=== PATIENT | male | born 1950 | race Caucasian/White ===

== ENCOUNTER → 2017-12-11 09:45 | Outpatient (CLI) | payer OTHER, SELFPAY ==
[2017-12-11 11:38] LABS: PSA,Total- Diagnostic 1.21 ng/mL (0.0-4.0)
== END ==
PROVIDERS: Family Provider Family Medicine; PCP Family Medicine; Visit Provider Urology
DX: C61 Malignant neoplasm of prostate (principal)
CPT/HCPCS: 36415; 84153

== ENCOUNTER 2024-04-25 12:48 | Outpatient (RCR) | payer SELFPAY ==
[2024-04-25 13:09] VITALS: BP 145/107; PULSE 89; RESP 18; BMI 30.4
--- NOTE | 2024-04-25 13:41 | PCM.WC.HP ---
History of Present Illness Date of Service: 04/25/24 Chief Complaint: R lateral ankle wound History of Wound: Mr. Jimbo Gray is a 73 y/o male who presents today for evaluation and management of a R lateral ankle wound as referred from Dr. Griffin's office with [facility]. He is accompanied to his appointment today by his . He reports that in February he had a straight pin in his shoe which scratched/punctured his ankle. Subsequently, he developed a significant abscess. He was evaluated for this at [facility], he was admitted for IV antibiotics, and Dr. Griffin performed I&D on 03/21/24. He has been following with Dr. Griffin to this point and has been applying Silvadene and dry dressing which they have been changing daily. His reports that there is typically mild drainage, but more moderate on days he is up on his feet more. He notes some increased swelling at the ankle on those days as well. He has completed outpatient oral antibiotic regimen, has not had any recurrent signs/symptoms of infection. He reports no significant past medical history including denying diabetes, known PAD or history of VTE. He does not smoke. He reports he has never had any wounds like this before. [facility] Medical History Stomach ulcer Home Medications ?Medication ?Instructions ?Recorded ?Last Taken ?Type pantoprazole 40 mg tablet,delayed 40 mg PO DAILY #30 tabs 12/24/20 Unknown Rx release (Protonix) Allergy/AdvReac Type Severity Reaction Status Date / Time No Known Allergies Allergy Verified 04/25/24 13:03 Surgical History H/O hernia repair Social History Smoking Status: Never smoker alcohol intake: never Vital Signs Vital Signs Vital Signs: 04/25/24 13:09 Pulse Rate 89 Respiratory Rate 18 Blood Pressure 145/107 H Blood Pressure Mean 119 Blood Pressure Source Monitor Blood Pressure Position Semi-Fowlers Blood Pressure Location Left Arm Oxygen Delivery Method Room Air Weight Weight: 200 lb Body Mass Index (BMI) 30.4 Physical Exam Const alert, oriented x3 and no apparent distress General Appearance: cooperative and comfortable HEENT normocephalic, hearing grossly normal bilaterally, external ears normal and external nose normal Eyes General Eye: normal appearance of both eyes Neck General: normal visual inspection and trachea midline Resp normal respiratory effort, normal air movement, no retractions and no use of accessory muscles Effort and Inspection: able to speak in complete sentences Cardio regular rate and regular rhythm Extremity Extremity Narrative: Trace RLE edema and hemosiderin staining Palpable pedal pulse Skin Wounds: wounds noted Wound Narrative: Irregularly shaped wound to the lateral R ankle into the subcutaneous layer with granular base but significant slough. No surrounding erythema, excess warmth, induration/fluctuance, foul odor. Serous drainage. Neuro oriented x3, CN's II-XII intact bilaterally, moves all extremities and no focal motor deficits Speech: speech normal Psych mental status grossly normal and activity/motor behavior normal Appearance: grossly normal Attitude: calm and engaged Activity / Motor Behavior: appropriate eye contact Judgement: judgement good Debridement Note Debridement Note Wound debrided: R lateral ankle Laterality: Right Type of Debridement: Excisional debridement Anesthesia Used: 4% Lidocaine Solution Depth: Down to and including healthy tissue and in the subcutaneous layer Percentage of wound debrided: 100 Instrument Used: 5mm curette Tissue Removed: slough Severity: Fat Layer Exposed Amount of bleeding with debridement: Mild Bleeding Controlled with: Pressure Post-Debridement Measurements and Additional Note: Post-Debridement Measurements/Treatment - Nurse 1 - General Ulcer Assessment Start: 04/25/24 13:02 Freq: Status: Active Protocol: [email or web address].[email or web address] Activity Type Activity Date Activity User E-sign Co-sign Detail Recorded Client Recorded Date Recorded By Document 04/25/24 13:09 [id number] 04/25/24 13:16 04/25/24 13:09 - Today's Visit Information Type of service Initial Visit Arrival Mode Ambulatory Accompanied by Patient Identification Verified (Name & Yes ) Height and Weight Height 5 ft 8 in Weight 200 lb Weight in Pounds 200.0 lbs Weight Measurement Method Estimated by Patient Body Mass Index (BMI) 30.4 BMI Classification Obese BSA - Prince 2.04 Vital Signs Pulse Rate (60-100) 89 Pulse Location Monitor Respiratory Rate (12-18) 18 Respiratory rate source Observation Oxygen Delivery Method Room Air Blood Pressure (90/60-120/80) 145/107 H Blood Pressure Mean 119 Source Monitor Position Semi-Fowlers Blood Pressure Location Left Arm History Since Last Visit- (Skip if this is Patient's initial visit) Left Footwear Regular Shoe Right Footwear Regular Shoe Pain Scale: 0-10 Numeric Is Patient Pain Free? Yes Lower Extremity Assessment/ Foot Assessment/ Toe Nail Assessment Right -Posterior Tibial Doppler Multiphasic -Dorsalis Pedis Palpable Yes -Dorsalis Pedis Doppler Multiphasic -Extremity Color Red -Hair Growth on Legs Yes -Hair Growth on Toes Yes -Temperature of Extremity Warm -Capillary Refill Less than 3 Seconds -Thick No -Discolored No -Deformed No -Improper Length & Hygeine No Communication Assessment Preferred language Thai Primer Powder Blender Wet Required No Able to Read Yes Able to Write Yes Communication Tools None Caregiver Communication Skills No Impairment Impairment Right Hearing Abillity Normal Left Hearing Abillity Normal Visual Assistive Devices None Teaching Assessment Preferences Verbal,Written, Demonstration Barriers to Learning None Readiness To Learn Excellent Willingness to Engage in Self Management High Activies Readiness to Engage in Self Management High Activities Anxiety Level Calm Cooperation Cooperative Perception Coherent Interest in Health Problem Asks Questions Education Importance Acknowledges Need Does Patient Smoke tobacco or other Yes substances Smoking Status Never smoker Is Patient Diabetic No Functional Assessment Recent Decline in Ability to Perform Denies Any Declines Culture/Sabianism/Associate Cultural/Sabianism Needs that may affect No Treatment Plan Would you allow our hospital boating safety officer to No meet you for the purpose of spiritual/ emotional support? Associate to contact place of sabianist No WC - Nurse 1 - General Ulcer Measurement Start: 04/25/24 13:02 Freq: Status: Active Protocol: Activity Type Activity Date Activity User E-sign Co-sign Detail Recorded Client Recorded Date Recorded By Document 04/25/24 13:09 [id number] 04/25/24 13:16 04/25/24 13:09 Wound Center Nurse 1 #1 RT LAT ANKLE -Current Size (cm) - Length 2.4 -Current Size (cm) - Width 3.8 -Current Size (cm) - Depth 0.1 -Total Square Cm 9.12 -Date of Last Picture (Recall this 04/25/24 field) -Exudate Amt Small -Exudate Type Serosanguineous -Wound Margin Distinct, Outline Attached -Granulation Amt Medium (34-66%) -Granulation Quality [place] -Necrosis Amt Medium (34-66%) -Necrotic Tissue Type Adherent Slough -Texture (Mendy-wound Skin Appearance) Assessed -Moisture (Mendy-wound Skin Appearance) Assessed -Color (Mendy-wound Skin Appearance) Assessed, Hemosiderin Staining -Temperature (Mendy-wound Skin No Abnormality Appearance) (Pt Warm) -Tenderness on Palpation (Mendy-wound No Skin Appearance) -Ulcer Cleansing Rinsed/ Irrigated with Saline -Foul Odor after Cleansing No -Anesthetic Used 5% Lidocaine Gel Right Calf (cm) 37 Right Ankle (cm) 24.5 WC - Nurse 2 - General Ulcer CM Notes Start: 04/25/24 13:02 Freq: Status: Active Protocol: Activity Type Activity Date Activity User E-sign Co-sign Detail Recorded Client Recorded Date Recorded By Document 04/25/24 13:23 GM [id number] 04/25/24 13:33 GM 04/25/24 13:23 Wound Center Nurse 2 #1 RT LAT ANKLE -Time 13:23 -Correct Patient Yes -Correct Side, Site, Position Yes -Correct Procedure Yes -Procedure Performed Yes -Type of Procedure Debridement -Clinical Debridement Subcutaneous -Tissue Removed Subcutaneous -Post Debridement (cm) - Length 2.7 -Post Debridement (cm) - Width 3.8 -Post Debridement (cm) - Depth 0.4 -Total Square (Post) (cm) 10.26 -Area of Debridement (cm) - Length 2.7 -Area of Debridement (cm) - Width 3.8 -Total Square (Area) (cm) 10.26 -Tunneling No -Undermining/Tunneling No -Circular Undermining No -Wound/Ulcer Outcome Not Healed -Ulcer Cleansing Rinsed/ Irrigated with Saline -Foul Odor after Cleansing No -Bioengineered Tissue No -Bleeding Controlled with Pressure -Treatment Response Procedure Tolerated Well -Debridement - Subq, 1st 20sq cm Yes Pain Scale: 0-10 Numeric Is Patient Pain Free? Yes WC - Nurse 3 - General Ulcer D/C NN Start: 04/25/24 13:02 Freq: Status: Active Protocol: Activity Type Activity Date Activity User E-sign Co-sign Detail Recorded Client Recorded Date Recorded By Document 04/25/24 13:39 KW [id number] 04/25/24 13:39 KW 04/25/24 13:39 Wound Care Center Nurse 3 #1 RT LAT ANKLE -Ulcer Cleansing Rinsed/ Irrigated with Saline -Primary Dressing Applied Aquacel AG 4x4, Mepilex Border -Aquacel AG 4x4 1 -Mepilex Border 1 Right -Tubular Bandage Single Layer -Size of Tubigrip Used Size E -Size E ($) 1 Pain Scale: 0-10 Numeric Is Patient Pain Free? Yes Charges/Coding Visit Charges Office Visits / Consults: [id number] OV L3 New 30min Procedures Integumentary 111xxx-113xx: 83017 Jessei subq tissue 20 sq cm/< Assessment/Plan Assessment/Plan (1) Chronic ulcer of ankle with fat layer exposed: CODE(S): L97.302 - Non-pressure chronic ulcer of unspecified ankle with fat layer exposed PLAN: Nonpressure chronic ulcer of the right lateral ankle with fat layer exposed PLAN: Plan Wound was debrided today as noted above, patient tolerated this well. For wound care, will apply Aquacel silver to the wound bed followed by either Mepilex border dressing or dry gauze dressing. Change at least once daily, more often as needed if the dressing becomes soaked or soiled. With dressing changes, wash the area with antibacterial soap and water and pat gently to dry. Will apply single layer medium strength tubigrip to manage edema. No signs/symptoms of recurrent infection on exam today. He is instructed to monitor for symptoms and notify us if they arise. Going forward, he will need to change to a Monday appointment to have more reliable transportation. He will return in 1 week to see another provider on Monday. Return or call sooner if needed.
--- NOTE | 2024-04-29 11:59 | WC ---
PHOTO 04/25/24 RIGHT LATERAL ANKLE
== END 2024-04-25 23:59 | disposition home or self-care (01) ==
LOC: WC 12:48
PROVIDERS: PCP Physician Assistant; Referring Provider Student in an Organized Health Care Education/Training Program; Visit Provider Physician Assistant
DX: L97.312 Non-pressure chronic ulcer of right ankle with fat layer exposed (principal); W26.8XXS Contact with other sharp object(s), not elsewhere classified, sequela; Z79.899 Other long term (current) drug therapy
CPT/HCPCS: 11042; 99203; G0463

== ENCOUNTER 2024-05-20 10:15 | Outpatient (RCR) | payer OTHER, SELFPAY ==
[2024-04-26 00:54] VITALS: BP 145/107; PULSE 89; RESP 18; BMI 30.4
[2024-05-06 10:02] VITALS: BP 151/103; PULSE 60; RESP 18; TEMP 36.5; BMI 30.4
--- NOTE | 2024-05-06 10:59 | PCM.WC.PN ---
History of Present Illness Date of Service: 05/06/24 Chief Complaint: R lateral ankle wound History of Wound: Mr. Jimbo Gray is a 73 y/o male who presents today for evaluation and management of a R lateral ankle wound as referred from Dr. Griffin's office with [facility]. He is accompanied to his appointment today by his . He reports that in February he had a straight pin in his shoe which scratched/punctured his ankle. Subsequently, he developed a significant abscess. He was evaluated for this at [facility], he was admitted for IV antibiotics, and Dr. Griffin performed I&D on 03/21/24. He has been following with Dr. Griffin to this point and has been applying Silvadene and dry dressing which they have been changing daily. His reports that there is typically mild drainage, but more moderate on days he is up on his feet more. He notes some increased swelling at the ankle on those days as well. He has completed outpatient oral antibiotic regimen, has not had any recurrent signs/symptoms of infection. He reports no significant past medical history including denying diabetes, known PAD or history of VTE. He does not smoke. He reports he has never had any wounds like this before. Progress of Wound: Patient was previously seen by PIERRE Tellez, but he was having issues with transportation on afternoons, so he was transferred to my clinic. His right ankle ulcer is a nice beefy pink color with granulation tissue present. It is measuring smaller than his previous visit. The patient states that he has noticed an improvement in the ulcer. His is helping him with his wound care. Objective Data Objective Data Vital Signs: Vital Signs Temp Pulse Resp BP O2 Del Method 97.7 F L 60 18 151/103 H Room Air 05/06/24 10:02 05/06/24 10:02 05/06/24 10:02 05/06/24 10:02 05/06/24 10:02 Oxygen Delivery Method Room Air Weight: 200 lb Body Mass Index (BMI) 30.4 Charges/Coding Procedures Integumentary 111xxx-113xx: [id number] Jessie subq tissue 20 sq cm/< Physical Exam Const alert and oriented x3 HEENT normocephalic Head and Scalp: atraumatic Lymph Lymphatic: no lymphedema noted Resp normal respiratory effort Effort and Inspection: able to speak in complete sentences Cardio regular rate Cardio Narrative: Right pedal and post tibial pulses palpable. +1 edema of right lower leg. Extremity normal capillary refill Neuro CN's II-XII intact bilaterally Psych affect normal Debridement Note Debridement Note Wound debrided: lateral ankle ulcer Laterality: Right Wound Grade/Stage: Stage III Type of Debridement: Excisional debridement Anesthesia Used: 5% Lidocaine Gel Depth: Down to and including healthy tissue and in the subcutaneous layer Percentage of wound debrided: 100 Instrument Used: 5mm curette Tissue Removed: Non viable tissue and slough Severity: Fat Layer Exposed Amount of bleeding with debridement: Mild Bleeding Controlled with: Pressure and Compression and gauze Patient tolerated procedure: Patient tolerated procedure well Post-Debridement Measurements and Additional Note: Post-Debridement Measurements/Treatment - Nurse 1 - General Ulcer Assessment Start: 05/06/24 10:02 Freq: Status: Active Protocol: [email or web address].[email or web address] Activity Type Activity Date Activity User E-sign Co-sign Detail Recorded Client Recorded Date Recorded By Document 05/06/24 10:02 EDGAR [id number] 05/06/24 10:08 EDGAR 05/06/24 10:02 - Today's Visit Information Type of service Follow-up Visit (Physician/COOKER MECHANIC ) Arrival Mode Ambulatory Patient Identification Verified (Name & Yes ) Height and Weight Body Mass Index (BMI) 30.4 BMI Classification Obese Vital Signs Temperature (97.8 F-99.1 F) 97.7 F L Temperature Source Temporal Pulse Rate (60-100) 60 Pulse Location Monitor Respiratory Rate (12-18) 18 Respiratory rate source Observation Oxygen Delivery Method Room Air Blood Pressure (90/60-120/80) 151/103 H Blood Pressure Mean (mm Hg) 119 Source Monitor Position Semi-Fowlers Blood Pressure Location Left Arm History Since Last Visit- (Skip if this is Patient's initial visit) Have you changed medications since your No last visit? Any new allergies or adverse reactions No Had a fall/change in ADL's that may No increase risk of falls Signs or symptoms of abuse and/or No neglect since last visit Have you been in the hospital since your No last visit? Has dressing in place as prescribed Yes Has compression in place as prescribed Yes Has offloadiing in place as prescribed N/A Experienced any changes in pain level or No management Left Footwear Regular Shoe Right Footwear Regular Shoe Pain Scale: 0-10 Numeric Is Patient Pain Free? Yes WC - Nurse 1 - General Ulcer Measurement Start: 05/06/24 10:02 Freq: Status: Active Protocol: Activity Type Activity Date Activity User E-sign Co-sign Detail Recorded Client Recorded Date Recorded By Document 05/06/24 10:02 [email or web address] [id number] 05/06/24 10:08 EDGAR 05/06/24 10:02 Wound Center Nurse 1 #1 RT LAT ANKLE -Current Size (cm) - Length 1.8 -Current Size (cm) - Width 2.8 -Current Size (cm) - Depth 0.1 -Total Square Cm 5.04 -Exudate Amt Small -Exudate Type Serosanguineous -Wound Margin Distinct, Outline Attached -Granulation Amt Large (67-100%) -Granulation Quality Hyper- granulation,Red -Texture (Mendy-wound Skin Appearance) Assessed -Moisture (Mendy-wound Skin Appearance) Assessed -Color (Mendy-wound Skin Appearance) Assessed -Temperature (Mendy-wound Skin No Abnormality Appearance) (Pt Warm) -Tenderness on Palpation (Mendy-wound No Skin Appearance) -Ulcer Cleansing Rinsed/ Irrigated with Saline -Foul Odor after Cleansing No -Anesthetic Used 5% Lidocaine Gel Right Calf (cm) 36.3 Right Ankle (cm) 24.2 WC - Nurse 2 - General Ulcer CM Notes Start: 05/06/24 10:02 Freq: Status: Active Protocol: Activity Type Activity Date Activity User E-sign Co-sign Detail Recorded Client Recorded Date Recorded By Document 05/06/24 10:51 MARYANNE [id number] 05/06/24 10:53 MARYANNE 05/06/24 10:51 Wound Center Nurse 2 #1 RT LAT ANKLE -Time 10:52 -Correct Patient Yes -Correct Side, Site, Position Yes -Correct Procedure Yes -Procedure Performed Yes -Type of Procedure Debridement -Clinical Debridement Subcutaneous -Tissue Removed Subcutaneous -Post Debridement (cm) - Length 1.8 -Post Debridement (cm) - Width 2.8 -Post Debridement (cm) - Depth 0.1 -Total Square (Post) (cm) 5.04 -Area of Debridement (cm) - Length 1.8 -Area of Debridement (cm) - Width 2.8 -Total Square (Area) (cm) 5.04 -Tunneling No -Undermining/Tunneling No -Circular Undermining No -Wound/Ulcer Outcome Not Healed -Ulcer Cleansing Rinsed/ Irrigated with Saline -Foul Odor after Cleansing No -Bioengineered Tissue No -Bleeding Controlled with Pressure -Treatment Response Procedure Tolerated Well -Offloading No -Debridement - Subq, 1st 20sq cm Yes Pain Scale: 0-10 Numeric Is Patient Pain Free? Yes Assessment/Plan Assessment/Plan (1) Chronic ulcer of ankle with fat layer exposed: CODE(S): L97.302 - Non-pressure chronic ulcer of unspecified ankle with fat layer exposed PLAN: Nonpressure chronic ulcer of the right lateral ankle with fat layer exposed PLAN: Plan Wound was debrided today as noted above, patient tolerated this well. For wound care, will apply Aquacel silver to the wound bed followed by dry gauze or Mepilex dressing. Change at least once daily, more often as needed if the dressing becomes soaked or soiled. With dressing changes, wash the area with antibacterial soap and water and pat gently to dry. Will apply single layer medium strength tubigrip to manage edema. No signs/symptoms of recurrent infection on exam today. He is instructed to monitor for symptoms and notify us if they arise. He will return in 2 weeks. Return or call sooner if needed.
[2024-05-20 10:02] VITALS: BP 149/86; PULSE 77; RESP 18; TEMP 36.2; BMI 30.4
--- NOTE | 2024-05-20 12:22 | PN.PCM_ITS ---
History of Present Illness Date of Service: 05/20/24 Chief Complaint: R lateral ankle wound History of Wound: Mr. Jimbo Gray is a 73 y/o male who presents today for evaluation and management of a R lateral ankle wound as referred from Dr. Griffin's office with [facility]. He is accompanied to his appointment today by his . He reports that in February he had a straight pin in his shoe which scratched/punctured his ankle. Subsequently, he developed a significant abscess. He was evaluated for this at [facility], he was admitted for IV antibiotics, and Dr. Griffin performed I&D on 03/21/24. He has been following with Dr. Griffin to this point and has been applying Silvadene and dry dressing which they have been changing daily. His reports that there is typically mild drainage, but more moderate on days he is up on his feet more. He notes some increased swelling at the ankle on those days as well. He has completed outpatient oral antibiotic regimen, has not had any recurrent signs/symptoms of infection. He reports no significant past medical history including denying diabetes, known PAD or history of VTE. He does not smoke. He reports he has never had any wounds like this before. Progress of Wound: His right ankle ulcer is a nice beefy pink color with granulation tissue present. It is measuring much smaller. His is helping him with his wound care. She is insisting on changing his dressing twice a day. Objective Data Objective Data Vital Signs: Vital Signs Temp Pulse Resp BP O2 Del Method 97.1 F L 77 18 149/86 H Room Air 05/20/24 10:02 05/20/24 10:02 05/20/24 10:02 05/20/24 10:02 05/20/24 10:02 Oxygen Delivery Method Room Air Weight: 200 lb Body Mass Index (BMI) 30.4 Charges/Coding Procedures Integumentary [id number]: [id number] Jessie subq tissue 20 sq cm/< Debridement Note Debridement Note Wound debrided: lateral ankle ulcer Laterality: Right Wound Grade/Stage: Stage III Type of Debridement: Excisional debridement Anesthesia Used: 5% Lidocaine Gel Depth: Down to and including healthy tissue and in the subcutaneous layer Percentage of wound debrided: 100 Instrument Used: 3mm curette Tissue Removed: Non viable tissue and slough Severity: Fat Layer Exposed Amount of bleeding with debridement: Mild Bleeding Controlled with: Pressure and Compression and gauze Patient tolerated procedure: Patient tolerated procedure well Post-Debridement Measurements and Additional Note: Post-Debridement Measurements/Treatment - Nurse 1 - General Ulcer Assessment Start: 05/06/24 10:02 Freq: Status: Active Protocol: VIET Activity Type Activity Date Activity User E-sign Co-sign Detail Recorded Client Recorded Date Recorded By Document 05/06/24 10:02 KW [id number] 05/06/24 10:08 KW Document 05/20/24 10:02 KW [id number] 05/20/24 10:07 KW 05/06/24 05/20/24 10:02 10:02 - Today's Visit Information Type of service Follow-up Visit Follow-up Visit (Physician/[employer]ACH [employer]OR [employer]KER (Physician/BLEACH [employer]QUOR MAKER ) ) Arrival Mode Ambulatory Ambulatory Patient Identification Verified (Name & Yes Yes ) Height and Weight Body Mass Index (BMI) 30.4 30.4 BMI Classification Obese Obese Vital Signs Temperature (97.8 F-99.1 F) 97.7 F L 97.1 F L Temperature Source Temporal Temporal Pulse Rate (60-100) 60 77 Pulse Location Monitor Monitor Respiratory Rate (12-18) 18 18 Respiratory rate source Observation Observation Oxygen Delivery Method Room Air Room Air Blood Pressure (90/60-120/80) 151/103 H 149/86 H Blood Pressure Mean (mm Hg) 119 107 Source Monitor Monitor Position Semi-Fowlers Sitting Blood Pressure Location Left Arm Left Arm History Since Last Visit- (Skip if this is Patient's initial visit) Have you changed medications since your No No last visit? Any new allergies or adverse reactions No No Had a fall/change in ADL's that may No No increase risk of falls Signs or symptoms of abuse and/or No No neglect since last visit Have you been in the hospital since your No No last visit? Has dressing in place as prescribed Yes Yes Has compression in place as prescribed Yes Yes Has offloadiing in place as prescribed N/A N/A Experienced any changes in pain level or No No management Left Footwear Regular Shoe Regular Shoe Right Footwear Regular Shoe Regular Shoe Pain Scale: 0-10 Numeric Is Patient Pain Free? Yes Yes - Nurse 1 - General Ulcer Measurement Start: 05/06/24 10:02 Freq: Status: Active Protocol: Activity Type Activity Date Activity User E-sign Co-sign Detail Recorded Client Recorded Date Recorded By Document 05/06/24 10:02 KW [id number] 05/06/24 10:08 KW Document 05/20/24 10:02 KW [id number] 05/20/24 10:07 KW 05/06/24 05/20/24 10:02 10:02 Wound Center Nurse 1 #1 RT LAT ANKLE -Current Size (cm) - Length 1.8 0.7 -Current Size (cm) - Width 2.8 1.5 -Current Size (cm) - Depth 0.1 0.1 -Total Square Cm 5.04 1.05 -Date of Last Picture (Recall this 05/20/24 field) -Exudate Amt Small Small -Exudate Type Serosanguineous Serosanguineous -Wound Margin Distinct, Distinct, Outline Outline Attached Attached -Granulation Amt Large (67-100%) Small (1-33%) -Granulation Quality Hyper- [place],Red granulation,Red -Necrosis Amt Large (67-100%) -Necrotic Tissue Type Adherent Slough -Texture (Mendy-wound Skin Appearance) Assessed Assessed -Moisture (Mendy-wound Skin Appearance) Assessed Maceration -Color (Mendy-wound Skin Appearance) Assessed Assessed, Ecchymosis -Temperature (Mendy-wound Skin No Abnormality No Abnormality Appearance) (Pt Warm) (Pt Warm) -Tenderness on Palpation (Mendy-wound No No Skin Appearance) -Ulcer Cleansing Rinsed/ Rinsed/ Irrigated with Irrigated with Saline Saline -Foul Odor after Cleansing No No -Anesthetic Used 5% Lidocaine 5% Lidocaine Gel Gel Right Calf (cm) 36.3 36.2 Right Ankle (cm) 24.2 23.3 WC - Nurse 2 - General Ulcer CM Notes Start: 05/06/24 10:02 Freq: Status: Active Protocol: Activity Type Activity Date Activity User E-sign Co-sign Detail Recorded Client Recorded Date Recorded By Document 05/06/24 10:51 JF [id number] 05/06/24 10:53 JF Document 05/20/24 10:20 JF [id number] 05/20/24 10:21 JF 05/06/24 05/20/24 10:51 10:20 Wound Center Nurse 2 #1 RT LAT ANKLE -Time 10:52 10:20 -Correct Patient Yes Yes -Correct Side, Site, Position Yes Yes -Correct Procedure Yes Yes -Procedure Performed Yes Yes -Type of Procedure Debridement Debridement -Clinical Debridement Subcutaneous Subcutaneous -Tissue Removed Subcutaneous Subcutaneous -Post Debridement (cm) - Length 1.8 0.9 -Post Debridement (cm) - Width 2.8 1.5 -Post Debridement (cm) - Depth 0.1 0.1 -Total Square (Post) (cm) 5.04 1.35 -Area of Debridement (cm) - Length 1.8 0.9 -Area of Debridement (cm) - Width 2.8 1.5 -Total Square (Area) (cm) 5.04 1.35 -Tunneling No No -Undermining/Tunneling No No -Circular Undermining No No -Wound/Ulcer Outcome Not Healed Not Healed -Ulcer Cleansing Rinsed/ Rinsed/ Irrigated with Irrigated with Saline Saline -Foul Odor after Cleansing No No -Bioengineered Tissue No No -Bleeding Controlled with Pressure Pressure -Treatment Response Procedure Procedure Tolerated Well Tolerated Well -Offloading No No -Debridement - Subq, 1st 20sq cm Yes Yes Pain Scale: 0-10 Numeric Is Patient Pain Free? Yes Yes - Nurse 3 - General Ulcer D/C NN Start: 05/06/24 10:02 Freq: Status: Active Protocol: Activity Type Activity Date Activity User E-sign Co-sign Detail Recorded Client Recorded Date Recorded By Document 05/06/24 10:59 KW [id number] 05/06/24 11:00 KW Document 05/20/24 10:40 DL [id number] 05/20/24 10:41 DL 05/06/24 05/20/24 10:59 10:40 Wound Care Center Nurse 3 #1 RT LAT ANKLE -Ulcer Cleansing Rinsed/ Irrigated with Saline -Foul Odor after Cleansing No -Primary Dressing Applied Aquacel AG 4x4 Aquacel AG 2x2, Aquacel AG 4x4 -Primary Dressing Covered/Secured with Dry Gauze, Dry Gauze & Secured with Roll Gauze, Tape Secured with Tape -Aquacel AG 2x2 1 -Aquacel AG 4x4 2 1 Right -Tubular Bandage Single Layer Single Layer -Size of Tubigrip Used Size E Size E -Size E ($) 1 1 Treatment Response Procedure Tolerated Well Pain Scale: 0-10 Numeric Is Patient Pain Free? 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 For wound care, will apply Aquacel silver to the wound bed followed by dry gauze or Mepilex dressing. Change 1-2 times a day, more often as needed if the dressing becomes soaked or soiled. With dressing changes, wash the area with antibacterial soap and water and pat gently to dry. Will apply single layer medium strength tubigrip to manage edema. No signs/symptoms of recurrent infection on exam today. He is instructed to monitor for symptoms and notify us if they arise. He will return in 2 weeks. Return or call sooner if needed.
--- NOTE | 2024-05-21 11:08 | WC ---
PHOTO 05/20/24 RIGHT LATERAL ANKLE
== END 2024-05-25 23:59 | disposition home or self-care (01) ==
LOC: WC 10:15
PROVIDERS: PCP Physician Assistant; Referring Provider Student in an Organized Health Care Education/Training Program; Visit Provider Physician Assistant
DX: L97.312 Non-pressure chronic ulcer of right ankle with fat layer exposed (principal); L02.91 Cutaneous abscess, unspecified; S91.001S Unspecified open wound, right ankle, sequela; W26.8XXS Contact with other sharp object(s), not elsewhere classified, sequela; Z79.899 Other long term (current) drug therapy
CPT/HCPCS: 11042

== ENCOUNTER 2024-06-03 11:51 | Emergency (ER) | payer OTHER, SELFPAY ==
[2024-06-03] VITALS (7 sets, daily range): BP systolic 163–192; BP diastolic 96–112; PULSE 55–67; RESP 13–23; TEMP 36.6; O2SAT 97–98; BMI 32.5
--- NOTE | 2024-06-03 12:26 | RAD_ITS ---
STUDY: X-RAY CHEST REASON FOR EXAM: Male, 73 years old. Chest pain TECHNIQUE: Single AP portable view of the chest. COMPARISON: None. FINDINGS: EKG electrodes are seen. The lungs are clear and expanded. There is no demonstrated pleural abnormality. Normal size heart. Normal mediastinum and herve. Normal visualized pulmonary arteries. There is atherosclerotic calcification of the aortic arch with tortuosity. There are diffuse degenerative changes of the visualized thoracic spine. Normal visualized ribs, clavicles, and shoulders. There is no demonstrated abnormality of the visualized soft tissue structures of the upper abdomen. RAD/Chest 1 View (Portable) IMPRESSION: Lungs are clear. Electronically Signed: Arya Bryant MD at 13:09 EST ,
--- NOTE | 2024-06-03 12:28 | EDS_ITS ---
HPI History of Present Illness Chief Complaint: Hypertension Informant: patient Narrative Narrative: 73-year-old male was sent here from wound care because of elevated blood pressure readings, 219/130, 192/112, 193/120. He states he was there because of in ulcerative wound to his right ankle that has been healing well. He has never taken any medication for blood pressure or any other medical problems. He does not recall ever having had a stress test, but he admits to me that for the last week he has been having chest pressure with walking/exertion, that resolves quickly with resting. He denies any other symptoms. He denies any episodes of chest pressure at rest. He does not have any of that right now. He has had no syncopal episodes or dyspnea. [facility] Medical History (Updated 06/03/24 @ 15:[address] Galileo Dunham MD) Stomach ulcer Home Medications ?Medication ?Instructions ?Recorded ?Last Taken ?Type pantoprazole 40 mg tablet,delayed 40 mg PO DAILY #30 tabs 12/24/20 Unknown Rx release (Protonix) amlodipine 10 mg tablet 10 mg PO DAILY #30 tabs 06/03/24 Unknown Rx Allergy/AdvReac Type Severity Reaction Status Date / Time No Known Allergies Allergy Verified 06/03/24 11:53 Surgical History (Updated 06/03/24 @ 12:40 by Amara Toth) History of cholecystectomy History of appendectomy H/O hernia repair Social History Smoking Status: Never smoker alcohol intake: never ROS ROS ED Constitutional Constitutional ED: Denies chills or fever(s) Eyes Eyes: Denies change in vision or diplopia ENT ENT ED: Denies rhinorrhea or sore throat Cardiovascular Cardiovascular: Reports as per HPI, chest pain and leg edema; Denies palpitations Respiratory/Chest Respiratory/Chest: Denies cough or dyspnea Gastrointestinal Gastrointestinal: Denies abdominal pain, diarrhea, nausea or vomiting Genitourinary Genitourinary ED: Denies decreased urination, dysuria or hematuria Musculoskeletal Musculoskeletal: Denies back pain or neck pain Integumentary Reports wounds; Denies abscess or rash Neurologic Neurologic: Denies headache(s), paresthesias or weakness Psychiatric Psychiatric: Denies anxiety or suicidal thoughts EXAM Physical Exam Const Vital Signs: 06/03/24 11:52 06/03/24 12:26 06/03/24 12:40 Temperature 98 F Temperature Source Oral Pulse Rate 67 Respiratory Rate 16 Respiratory Effort Normal Respiratory Pattern Normal Blood Pressure 192/112 H Blood Pressure Mean 138 Pulse Ox 98 Oxygen Delivery Method Room Air Room Air 06/03/24 13:12 06/03/24 13:15 06/03/24 13:30 Temperature Temperature Source Pulse Rate 66 63 55 L Respiratory Rate 23 H 19 H 13 Respiratory Effort Respiratory Pattern Blood Pressure 163/105 H 172/96 H Blood Pressure Mean 122 115 Pulse Ox 97 97 98 Oxygen Delivery Method 06/03/24 13:45 Temperature Temperature Source Pulse Rate 64 Respiratory Rate 19 H Respiratory Effort Respiratory Pattern Blood Pressure 163/103 H Blood Pressure Mean 122 Pulse Ox 97 Oxygen Delivery Method Positive well nourished and well developed General Appearance ED: well developed and NAD HEENT Reports moist mucous membranes normocephalic and atraumatic Eyes PERRL and EOMs intact bilaterally Neck full ROM and supple Resp normal respiratory effort and clear to auscultation bilaterally Cardio regular rate, regular rhythm and no murmurs Rate: Negative for tachycardic GI non-tender and non-distended Auscultation: normoactive bowel sounds Palpation: soft Back/Spine no CVA tenderness General Back: other FROM Extremity normal to inspection General Extremety ED: Yes edema; Negative for pulses abnormal or tenderness General Extremity: edema bilateral lower extremity Details: mild; Negative for pulses abnormal Neuro oriented x3, CN's II-XII intact bilaterally and no sensory deficits noted Sensorium / Orientation: awake and alert Motor Exam: strength 5/5 throughout Skin no rashes or lesions noted Skin Narrative: Wound dressing clean, dry, intact MDM MDM MDM Narrative Medical decision making narrative: Patient remained asymptomatic while being monitored in the ED and awaiting labs including troponin which is normal. His EKG is normal. He is not actively having chest pressure right now. While waiting for the workup, he was given hydralazine 10 mg, and on reevaluation he is blood pressure is 163/103 and he has no symptoms. Renal function is normal. 1 view chest x-ray normal in my interpretation. I offered patient admission for stress testing, but he declines and would prefer to follow-up as an outpatient which is reasonable. At worst his symptoms are consistent with stable angina, or his blood pressure may be causing his symptoms. I discussed with Dr. Colvin, he recommends having the patient follow-up closely as an outpatient and putting him on loaded pain 10 mg for now. I think that is reasonable. His relative bradycardia dictates we start with that rather than add a beta-lydia. On further questioning the patient is comfortable with that plan, and he states he was checking his blood pressure off-and-on this past week, and systolic was anywhere between 140-160. Lab Data Attestation: I reviewed the patient's lab results. Labs: Laboratory Results - last 24 hr 06/03/24 12:43 WBC 7.6 RBC 4.43 L Hgb 12.9 L Hct 39.2 L MCV 88.5 MCH 29.1 MCHC 32.9 RDW Std Deviation 47.8 H RDW Coeff of Toni 14.9 H Plt Count 341 MPV 8.4 Immature Gran % (Auto) 0.400 Neut % (Auto) 61.7 Lymph % (Auto) 26.8 [place] % (Auto) 8.1 Eos % (Auto) 1.9 Baso % (Auto) 1.1 H Absolute Neuts (auto) 4.7 Absolute Lymphs (auto) 2.02 Nucleated RBC % 0 Sodium 139 Potassium 3.6 Chloride 104 Carbon Dioxide 29.0 Anion Gap 6 BUN 12 Creatinine 0.81 Estim Creat Clear Calc 91.75 Est GFR (MDRD) Af Amer 120 Est GFR (MDRD) Non-Af 99 BUN/Creatinine Ratio 14.8 Glucose 109 H Calcium 8.8 Troponin I High Sens 11 Radiography Diagnostic Testing: Clinical Impression(s) from Imaging Studies Chest X-Ray 06/03/24 12:26 IMPRESSION: Lungs are clear. Electronically Signed: Arya Bryant MD at 13:09 EST , Rhythm Strip Rhythm Strip: Sinus Rhythm Rate: 56 Ectopy: None EKG Initial EKG: Attestation: I personally reviewed and interpreted this EKG as follows: Interpretation: Sinus Rhythm and No Acute Injury Pattern Comments: Nml axis & intervals; nml EKG Management Discussion w/another healthcare provider: [employer] (Cardiology Dr. Colvin) Discharge Plan Triage Chief Complaint: Hypertension ED Provider: Galileo Dunham Dx/Rx/DC Orders Clinical Impression: Stable angina, Episode of hypertension Instructions: Hypertension Dc Prescriptions: New amlodipine 10 mg tablet 10 mg PO DAILY Qty: 30 0RF No Action pantoprazole [Protonix] 40 mg tablet,delayed release (DR/EC) 40 mg PO DAILY Qty: 30 0RF Primary Care Provider: Michael Adler Referrals: Sd Colvin MD [Med Staff - Active Staff] - As soon as possible (Call for appointment) Michael Adler PA [Primary Care Provider] - Print Language: [place] Disposition Disposition: Home, Self Care
--- NOTE | 2024-06-03 12:30 | EKG12_ITS ---
Test Reason : Blood Pressure : */* mmHG Vent. Rate : 56 BPM Atrial Rate : 56 BPM P-R Int : 172 ms QRS Dur : 96 ms QT Int : 458 ms P-R-T Axes : 34 -1 5 degrees QTcB Int : 441 ms Sinus bradycardia Minimal voltage criteria for LVH, may be normal variant ( R in aVL ) Borderline ECG Confirmed by NITIN MAHAJAN, SHERLY ([id number]), mapping editor MARGRET CLEANING ([id number]) on 06/04/2024 8:16:15 AM Referred By: Confirmed By: SHERLY TAVERAS MD
[2024-06-03] MEDS: hydrALAZINE 20 MG/ML Vial 10 MG IV (12:37)
[2024-06-03] MEDS: Aspirin 81 MG TAB.CHEW 324 MG PO (12:37)
[2024-06-03 12:53] LABS: Absolute Lymphocyte Count 2.02 X10^3/uL (0.83-4.51); Absolute Neutrophil Count 4.7 X10^3/uL (2.0-7.7); Basophil# 0.08 X10^3/uL; Basophil% 1.1 % (0-1); Eosinophil# 0.14 X10^3/uL; Eosinophils% 1.9 % (0-5); Hematocrit 39.2 % (40-54); Hemoglobin 12.9 g/dL (13.0-16.5); Lymphocyte # 2.02 X10^3/ul (0.83-4.51); Lymphocyte % 26.8 % (19-41); Mean Corp Hgb Conc 32.9 g/dL (32-36); Mean Corpuscular Hgb 29.1 pg (27.0-32.0); Mean Corpuscular Volume 88.5 fL (80-94); Mean Platelet Vol. 8.4 fl (6.2-12.0); Monocyte# 0.61 X10^3/uL; Monocyte% 8.1 % (0-10); NRBC Flagged by Analyzer 0 % (0-5); Neutrophil # 4.67 X10^3/uL (2.7-7.7); Neutrophil % 61.7 % (47-70); Platelet Count 341 K/mm3 (150-450); RBC Distribution Width CV 14.9 % (11.6-14.6); RBC Distribution Width SD 47.8 fl (35.1-43.9); Red Blood Count 4.43 M/mm3 (4.6-6.2); White Blood Count 7.6 K/mm3 (4.4-11.0)
[2024-06-03 13:11] LABS: Anion Gap 6 (5-15); BUN 12 mg/dL (7-18); BUN/Creat Ratio 14.8 RATIO (10-20); Calcium,Total 8.8 mg/dL (8.5-10.1); Chloride 104 mmol/L (98-107); Creatinine, Serum 0.81 mg/dL (0.70-1.30); EST Glomerular Filtration Rate 99 mL/min (>60); Est Glom Filt Rate - Afr Amer 120 mL/min (>60); Estimated Creatinine Clearance 91.75 ml/min; Glucose 109 mg/dL (74-106); Potassium 3.6 mmol/L (3.5-5.1); Sodium Level 139 mmol/L (136-145); Troponin-I HS 11 pg/mL (3.0-78.0)
== END 2024-06-03 15:20 | disposition home or self-care (01) ==
PROVIDERS: Emergency Provider Emergency Medicine; PCP Physician Assistant; Visit Provider Emergency Medicine
DX: I10 Essential (primary) hypertension (principal); I20.9 Angina pectoris, unspecified; Z90.49 Acquired absence of other specified parts of digestive tract
CPT/HCPCS: 71045; 80048; 84484; 85025; 93005; 96374; 99284; A4216

== ENCOUNTER 2024-06-17 10:15 | Outpatient (RCR) | payer OTHER, SELFPAY ==
[2024-05-26 00:53] VITALS: BP 145/107; PULSE 89; RESP 18; TEMP 36.2; BMI 30.4
[2024-06-03 10:11] VITALS: BP 192/112; PULSE 59; RESP 16; TEMP 36.6; BMI 30.4
--- NOTE | 2024-06-03 14:13 | PCM.WC.PN ---
History of Present Illness Date of Service: 06/03/24 Chief Complaint: R lateral ankle wound History of Wound: Mr. Jimbo Gray is a 73 y/o male who presents today for evaluation and management of a R lateral ankle wound as referred from Dr. Griffin's office with [facility]. He is accompanied to his appointment today by his . He reports that in February he had a straight pin in his shoe which scratched/punctured his ankle. Subsequently, he developed a significant abscess. He was evaluated for this at [facility], he was admitted for IV antibiotics, and Dr. Griffin performed I&D on 03/21/24. He has been following with Dr. Griffin to this point and has been applying Silvadene and dry dressing which they have been changing daily. His reports that there is typically mild drainage, but more moderate on days he is up on his feet more. He notes some increased swelling at the ankle on those days as well. He has completed outpatient oral antibiotic regimen, has not had any recurrent signs/symptoms of infection. He reports no significant past medical history including denying diabetes, known PAD or history of VTE. He does not smoke. He reports he has never had any wounds like this before. Progress of Wound: His right ankle ulcer is much smaller. The ulcer bed is nice beefy pink. His is helping him with his wound care. He states he has been using a cream with silver that he obtained. His blood pressure is extremely high today (230's/160's), having been taken several times. He states he doesn't typically have HTN. He denies being on any medication. He denies chest pain or headache at this time but states that he had some chest pressure over the weekend. Referring him to the ED. Phoned and spoke to Dr. Stanley in the ED to let him know the patient is going over to be evaluated. Objective Data Objective Data Vital Signs: Vital Signs Temp Pulse Resp BP O2 Del Method 98 F 59 L 16 192/112 H Room Air 06/03/24 10:11 06/03/24 10:11 06/03/24 10:11 06/03/24 10:11 06/03/24 10:11 Oxygen Delivery Method Room Air Weight: 200 lb Body Mass Index (BMI) 30.4 Charges/Coding Procedures Integumentary [id number]: [id number] Jessie subq tissue 20 sq cm/< Debridement Note Debridement Note Wound debrided: lateral ankle ulcer Laterality: Right Wound Grade/Stage: Stage III Type of Debridement: Excisional debridement Anesthesia Used: 5% Lidocaine Gel Depth: Down to and including healthy tissue and in the subcutaneous layer Percentage of wound debrided: 100 Instrument Used: 3mm curette Tissue Removed: Non viable tissue and slough Severity: Fat Layer Exposed Amount of bleeding with debridement: Mild Bleeding Controlled with: Pressure and Compression and gauze Patient tolerated procedure: Patient tolerated procedure well Post-Debridement Measurements and Additional Note: Post-Debridement Measurements/Treatment - Nurse 1 - General Ulcer Assessment Start: 06/03/24 10:11 Freq: Status: Active Protocol: VIET Activity Type Activity Date Activity User E-sign Co-sign Detail Recorded Client Recorded Date Recorded By Document 06/03/24 10:11 [facility] [id number] 06/03/24 10:24 [facility] 06/03/24 10:11 WC - Today's Visit Information Type of service Follow-up Visit (Physician/CORRECTIONAL MAINTENANCE TECHNICIAN ) Arrival Mode Ambulatory Patient Identification Verified (Name & Yes ) Patient Requires Transmission-Based No Precautions Height and Weight Body Mass Index (BMI) 30.4 BMI Classification Obese Vital Signs Temperature (97.8 F-99.1 F) 98 F Temperature Source Temporal Pulse Rate (60-100) 59 L Pulse Location Monitor Respiratory Rate (12-18) 16 Respiratory rate source Observation Oxygen Delivery Method Room Air Blood Pressure (90/60-120/80) 192/112 H Blood Pressure Mean (mm Hg) 138 Source Manual Position Sitting Blood Pressure Location Right Arm Comment rue w/ monitor- 193/120, and 192/112 pulse 59 History Since Last Visit- (Skip if this is Patient's initial visit) Have you changed medications since your No last visit? Any new allergies or adverse reactions No Had a fall/change in ADL's that may No increase risk of falls Signs or symptoms of abuse and/or No neglect since last visit Have you been in the hospital since your No last visit? Has dressing in place as prescribed Yes Has compression in place as prescribed N/A Has offloadiing in place as prescribed N/A Experienced any changes in pain level or No management Left Footwear Regular Shoe Right Footwear Regular Shoe Pain Scale: 0-10 Numeric Is Patient Pain Free? Yes - Nurse 1 - General Ulcer Measurement Start: 06/03/24 10:11 Freq: Status: Active Protocol: Activity Type Activity Date Activity User E-sign Co-sign Detail Recorded Client Recorded Date Recorded By Document 06/03/24 10:11 [facility] [id number] 06/03/24 10:24 [facility] 06/03/24 10:11 Wound Center Nurse 1 #1 RT LAT ANKLE -Combined with other wound No -Current Size (cm) - Length 0.2 -Current Size (cm) - Width 0.3 -Current Size (cm) - Depth 0.1 -Total Square Cm 0.06 -Date of Last Picture (Recall this 06/03/24 field) -Photo Taken Yes -Epithelialization Small 1-33% -Tunneling No -Undermining/Tunneling No -Circular Undermining No -Exudate Amt Medium -Exudate Type Serosanguineous -Wound Margin Distinct, Outline Attached -Granulation Amt Large (67-100%) -Granulation Quality Red -Slough/Fibrin Yes -Necrosis Amt Small (1-33%) -Necrotic Tissue Type Adherent Slough -Texture (Mendy-wound Skin Appearance) Assessed, Scarring -Moisture (Mendy-wound Skin Appearance) Assessed,Dry/ Scaly -Color (Mendy-wound Skin Appearance) Assessed -Temperature (Mendy-wound Skin No Abnormality Appearance) (Pt Warm) -Tenderness on Palpation (Mendy-wound No Skin Appearance) -Ulcer Cleansing Soap and Water -Foul Odor after Cleansing No -Anesthetic Used 5% Lidocaine Gel WC - Nurse 2 - General Ulcer CM Notes Start: 06/03/24 10:11 Freq: Status: Active Protocol: Activity Type Activity Date Activity User E-sign Co-sign Detail Recorded Client Recorded Date Recorded By Document 06/03/24 11:04 MARYANNE [id number] 06/03/24 11:05 06/03/24 11:04 Wound Center Nurse 2 -Time 11:04 -Correct Patient Yes -Correct Side, Site, Position Yes -Correct Procedure Yes -Procedure Performed Yes -Type of Procedure Debridement -Clinical Debridement Subcutaneous -Tissue Removed Subcutaneous -Post Debridement (cm) - Length 0.5 -Post Debridement (cm) - Width 0.6 -Post Debridement (cm) - Depth 0.1 -Total Square (Post) (cm) 0.30 -Area of Debridement (cm) - Length 0.5 -Area of Debridement (cm) - Width 0.6 -Total Square (Area) (cm) 0.30 -Tunneling No -Undermining/Tunneling No -Circular Undermining No -Wound/Ulcer Outcome Not Healed -Ulcer Cleansing Rinsed/ Irrigated with Saline -Foul Odor after Cleansing No -Bioengineered Tissue No -Bleeding Controlled with Pressure -Treatment Response Procedure Tolerated Well -Offloading No -Debridement - Subq, 1st 20sq cm Yes Pain Scale: 0-10 Numeric Is Patient Pain Free? Yes - Nurse 3 - General Ulcer D/C NN Start: 06/03/24 10:11 Freq: Status: Active Protocol: Activity Type Activity Date Activity User E-sign Co-sign Detail Recorded Client Recorded Date Recorded By Document 06/03/24 11:05 MARYANNE [id number] 06/03/24 11:08 MARYANNE 06/03/24 11:05 Wound Care Center Nurse 3 #1 RT LAT ANKLE -Ulcer Cleansing Rinsed/ Irrigated with Saline -Foul Odor after Cleansing No -Primary Dressing Applied Mepilex Border -Other Dressing hydrogel -Mepilex Border 1 Right -Tubular Bandage Single Layer -Size of Tubigrip Used Size E -Size E ($) 1 Pain Scale: 0-10 Numeric Is Patient Pain Free? Yes WC - Visit Discharge Discharge Condition Stable Ambulatory Status Ambulatory Transportation Private Auto Medication Reconcilliation completed & Yes provided to patient/care provider Clinical Summary of Care Provided Yes Notes: rechecked BP manually to left arm. 230/ 170. Margo Fotser [employer]ERCIAL [employer] INSTITUTIONAL CLEANER notified and encouraged him to report to ER . Dr Stanley notified. Patient is currently showing no signs with headache, chest pain or heaviness but did state he had some this weekend. Transportation okay to take him to the ER. Patient ambulated without difficulty and states he feels okay. 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 For wound care, will apply Aquacel silver (or silver cream he has been using at home) to the wound bed followed by dry gauze or Mepilex dressing. Change 1-2 times a day, more often as needed if the dressing becomes soaked or soiled. With dressing changes, wash the area with antibacterial soap and water and pat gently to dry. Will apply single layer medium strength tubigrip to manage edema. No signs/symptoms of recurrent infection on exam today. He is instructed to monitor for symptoms and notify us if they arise. His blood pressure is extremely high today (230's/160's). He states he doesn't typically have HTN. He denies being on any medication. He denies chest pain or headache at this time but states that he had some chest pressure over the weekend. Referring him to the ED. Phoned and spoke to Dr. Stanley in the ED to let him know the patient is going over to be evaluated. He will return in 2 weeks. Return or call sooner if needed.
--- NOTE | 2024-06-04 14:40 | WC ---
PHOTO RIGHT LATERAL ANKLE 06/03/24
[2024-06-17 10:11] VITALS: BP 148/94; PULSE 56; RESP 16; TEMP 36.2; BMI 30.4
--- NOTE | 2024-06-17 12:30 | PCM.WC.PN ---
History of Present Illness Date of Service: 06/17/24 Chief Complaint: R lateral ankle wound History of Wound: Mr. Jimbo Gray is a 73 y/o male who presents today for evaluation and management of a R lateral ankle wound as referred from Dr. Griffin's office with [facility]. He is accompanied to his appointment today by his . He reports that in February he had a straight pin in his shoe which scratched/punctured his ankle. Subsequently, he developed a significant abscess. He was evaluated for this at [facility], he was admitted for IV antibiotics, and Dr. Griffin performed I&D on 03/21/24. He has been following with Dr. Griffin to this point and has been applying Silvadene and dry dressing which they have been changing daily. His reports that there is typically mild drainage, but more moderate on days he is up on his feet more. He notes some increased swelling at the ankle on those days as well. He has completed outpatient oral antibiotic regimen, has not had any recurrent signs/symptoms of infection. He reports no significant past medical history including denying diabetes, known PAD or history of VTE. He does not smoke. He reports he has never had any wounds like this before. Progress of Wound: His right ankle ulcer is healed today. His blood pressure is under better control. He states he stopped his BP medication because he is doing a body cleanse to get all the poisons out of his body. He states that he feels great. His BP is ok but still mildly elevated in the 140/80's. Stressed importance of taking medication as prescribed. He follows up after the first of the year with cardiology. Objective Data Objective Data Vital Signs: Vital Signs Temp Pulse Resp BP O2 Del Method 97.1 F L 56 L 16 148/94 H Room Air 06/17/24 10:11 06/17/24 10:11 06/17/24 10:11 06/17/24 10:11 06/17/24 10:11 Oxygen Delivery Method Room Air Weight: 200 lb Body Mass Index (BMI) 30.4 Charges/Coding Visit Charges Office Visits / Consults: 32215 OV L3 Est 20min Physical Exam Const alert and oriented x3 HEENT normocephalic Head and Scalp: atraumatic Lymph Lymphatic: no lymphedema noted Resp normal respiratory effort and clear to auscultation bilaterally Effort and Inspection: able to speak in complete sentences Cardio regular rate and regular rhythm Extremity normal capillary refill Skin Wound Narrative: Right lateral ankle ulcer is healed. Neuro CN's II-XII intact bilaterally Psych affect normal Debridement Note Debridement Note Post-Debridement Measurements and Additional Note: Post-Debridement Measurements/Treatment - Nurse 1 - General Ulcer Assessment Start: 06/03/24 10:11 Freq: Status: Active Protocol: [email or web address] Activity Type Activity Date Activity User E-sign Co-sign Detail Recorded Client Recorded Date Recorded By Document 06/03/24 10:11 [facility] [id number] 06/03/24 10:24 [facility] Document 06/17/24 10:11 [facility] [id number] 06/17/24 10:17 BM 06/03/24 06/17/24 10:11 10:11 - Today's Visit Information Type of service Follow-up Visit Follow-up Visit (Physician/NETWORK PLANNER (Physician/NETWORK PLANNER ) ) Arrival Mode Ambulatory Ambulatory Transfer Assistance None Patient Identification Verified (Name & Yes Yes ) Patient Requires Transmission-Based No No Precautions Height and Weight Body Mass Index (BMI) 30.4 30.4 BMI Classification Obese Obese Vital Signs Temperature (97.8 F-99.1 F) 98 F 97.1 F L Temperature Source Temporal Temporal Pulse Rate (60-100) 59 L 56 L Pulse Location Monitor Monitor Respiratory Rate (12-18) 16 16 Respiratory rate source Observation Observation Oxygen Delivery Method Room Air Room Air Blood Pressure (90/60-120/80) 192/112 H 148/94 H Blood Pressure Mean (mm Hg) 138 112 Source Manual Monitor Position Sitting Sitting Blood Pressure Location Right Arm Comment rue w/ monitor- 193/120, and 192/112 pulse 59 History Since Last Visit- (Skip if this is Patient's initial visit) Have you changed medications since your No No last visit? Any new allergies or adverse reactions No No Had a fall/change in ADL's that may No No increase risk of falls Signs or symptoms of abuse and/or No No neglect since last visit Have you been in the hospital since your No No last visit? Has dressing in place as prescribed Yes Yes Has compression in place as prescribed N/A N/A Has offloadiing in place as prescribed N/A N/A Experienced any changes in pain level or No No management Left Footwear Regular Shoe Regular Shoe Right Footwear Regular Shoe Regular Shoe Pain Scale: 0-10 Numeric Is Patient Pain Free? Yes Yes - Nurse 1 - General Ulcer Measurement Start: 06/03/24 10:11 Freq: Status: Active Protocol: Activity Type Activity Date Activity User E-sign Co-sign Detail Recorded Client Recorded Date Recorded By Document 06/03/24 10:11 [facility] [id number] 06/03/24 10:24 [facility] Document 06/17/24 10:11 [facility] [id number] 06/17/24 10:17 [facility] 06/03/24 06/17/24 10:11 10:11 Wound Center Nurse 1 #1 RT LAT ANKLE -Combined with other wound No No -Current Size (cm) - Length 0.2 0.1 -Current Size (cm) - Width 0.3 0.1 -Current Size (cm) - Depth 0.1 0.1 -Total Square Cm 0.06 0.01 -Date of Last Picture (Recall this 06/03/24 06/17/24 field) -Photo Taken Yes Yes -Epithelialization Small 1-33% Large 67-100% -Tunneling No No -Undermining/Tunneling No No -Circular Undermining No No -Exudate Amt Medium None Present -Exudate Type Serosanguineous -Wound Margin Distinct, Outline Attached -Granulation Amt Large (67-100%) -Granulation Quality Red -Slough/Fibrin Yes -Necrosis Amt Small (1-33%) -Necrotic Tissue Type Adherent Slough -Texture (Mendy-wound Skin Appearance) Assessed, Assessed Scarring -Moisture (Mendy-wound Skin Appearance) Assessed,Dry/ Assessed Scaly -Color (Mendy-wound Skin Appearance) Assessed Assessed -Temperature (Mendy-wound Skin No Abnormality No Abnormality Appearance) (Pt Warm) (Pt Warm) -Tenderness on Palpation (Mendy-wound No No Skin Appearance) -Ulcer Cleansing Soap and Water -Foul Odor after Cleansing No -Anesthetic Used 5% Lidocaine Gel WC - Nurse 2 - General Ulcer CM Notes Start: 06/03/24 10:11 Freq: Status: Active Protocol: Activity Type Activity Date Activity User E-sign Co-sign Detail Recorded Client Recorded Date Recorded By Document 06/03/24 11:04 [id number] 06/03/24 11:05 Document 06/17/24 10:19 [id number] 06/17/24 10:20 06/03/24 06/17/24 11:04 10:19 Wound Center Nurse 2 #1 RT LAT ANKLE -Time 11:04 -Correct Patient Yes No -Correct Side, Site, Position Yes No -Correct Procedure Yes No -Procedure Performed Yes No -Type of Procedure Debridement -Clinical Debridement Subcutaneous -Tissue Removed Subcutaneous -Post Debridement (cm) - Length 0.5 0 -Post Debridement (cm) - Width 0.6 0 -Post Debridement (cm) - Depth 0.1 0 -Total Square (Post) (cm) 0.30 0 -Area of Debridement (cm) - Length 0.5 0 -Area of Debridement (cm) - Width 0.6 0 -Total Square (Area) (cm) 0.30 0 -Tunneling No -Undermining/Tunneling No -Circular Undermining No -Wound/Ulcer Outcome Not Healed Healed- Epithelialized -Ulcer Cleansing Rinsed/ Irrigated with Saline -Foul Odor after Cleansing No -Bioengineered Tissue No -Bleeding Controlled with Pressure -Treatment Response Procedure Tolerated Well -Offloading No -Debridement - Subq, 1st 20sq cm Yes Pain Scale: 0-10 Numeric Is Patient Pain Free? Yes Yes - Nurse 3 - General Ulcer D/C NN Start: 06/03/24 10:11 Freq: Status: Active Protocol: Activity Type Activity Date Activity User E-sign Co-sign Detail Recorded Client Recorded Date Recorded By Document 06/03/24 11:05 [id number] 06/03/24 11:08 Document 06/17/24 10:20 [id number] 06/17/24 10:21 06/03/24 06/17/24 11:05 10:20 Wound Care Center Nurse 3 #1 RT LAT ANKLE -Ulcer Cleansing Rinsed/ Irrigated with Saline -Foul Odor after Cleansing No -Primary Dressing Applied Mepilex Border -Other Dressing hydrogel -Mepilex Border 1 Right -Tubular Bandage Single Layer -Size of Tubigrip Used Size E -Size E ($) 1 Pain Scale: 0-10 Numeric Is Patient Pain Free? Yes Yes - Visit Discharge Discharge Condition Stable Stable Ambulatory Status Ambulatory Ambulatory Transportation Private Auto Private Auto Medication Reconcilliation completed & Yes Yes provided to patient/care provider Clinical Summary of Care Provided Yes Yes Notes: rechecked BP patient applied manually to tubigrips from left arm. 230/ own stock. 170. Margo Foster SUPERVISOR ASSEMBLY notified and encouraged him to report to ER . Dr Stanley notified. Patient is currently showing no signs with headache, chest pain or heaviness but did state he had some this weekend. Transportation okay to take him to the ER. Patient ambulated without difficulty and states he feels okay. Assessment/Plan Assessment/Plan (1) Chronic ulcer of ankle with fat layer exposed: CODE(S): L97.302 - Non-pressure chronic ulcer of unspecified ankle with fat layer exposed PLAN: Nonpressure chronic ulcer of the right lateral ankle with fat layer exposed PLAN: Plan Instructed patient to massage lotion into his healed ulcer to help soften the scarring. Recommend he continue to wear compression 20-30 mmHg daily bilaterally to help control his edema. Discussed how edema increases risk of getting ulcers, plus it will help prevent heaviness. Stressed importance of taking his blood pressure as prescribed. Follow up as needed.
--- NOTE | 2024-07-01 09:55 | WC ---
PHOTO 06/17/24 RIGHT LATERAL ANKLE
== END 2024-06-17 15:19 | disposition home or self-care (01) ==
LOC: WC 10:15
PROVIDERS: PCP Physician Assistant; Referring Provider Student in an Organized Health Care Education/Training Program; Visit Provider Nurse Practitioner Family
DX: L97.312 Non-pressure chronic ulcer of right ankle with fat layer exposed (principal); L02.91 Cutaneous abscess, unspecified; W26.8XXS Contact with other sharp object(s), not elsewhere classified, sequela; Z79.899 Other long term (current) drug therapy
CPT/HCPCS: 11042; 99213; G0463

== ENCOUNTER → 2024-09-06 | Outpatient (CLI) | payer SELFPAY, OTHER ==
--- NOTE | 2024-09-06 08:45 | ECHOD_ITS ---
Reason For Study Reason For Study: chest pain Procedure This was a 2D Doppler, Color Flow transthoracic echocardiogram. Exam performed in department. Left Ventricle Normal LV size. Left ventricular systolic function is normal. The estimated ejection fraction is 65 %. No regional wall motion abnormalities noted. Right Ventricle Normal RV size. Normal systolic function. Atria Normal left atrium. Normal right atrium. Mitral Valve Mild diffuse mitral valve thickening. Mild (1+) eccentric mitral valve insufficiency. Tricuspid Valve Normal tricuspid valve. Mild (1+) tricuspid valve insufficiency. Pulmonary artery systolic pressure is 34 mmHg. Aortic Valve Trisinus/trileaflet aortic valve. Moderate focal aortic valve calcification. Peak aortic valve gradient 22 mmHg. Mean aortic valve gradient 12 mmHg. Mild aortic stenosis. Mild (1+) aortic valve insufficiency. Pulmonic Valve Normal pulmonic valve. Great Vessels Normal aortic root. The pulmonary artery is normal size. Inferior vena cava collapse with respiration. Pericardium/Pleural No pericardial effusion. MMode/2D Measurements & Calculations LVIDd: 5.1 cm IVSd: 1.1 cm LVOT diam: 2.1 cm LVIDs: 3.3 cm LVPWd: 1.2 cm LVOT area: 3.4 cm2 FS: 35.8 % Ao root diam: 3.9 cm LAV(MOD-bp): 54.6 ml LVAd ap4: 35.4 cm2 LAV(MOD-bp) Indexed: 26.1 ml/m2 LVLd ap4: 8.6 cm LAV(MOD-sp2): 69.1 ml EDV(MOD-sp4): 120.8 ml LAV(MOD-sp4): 38.6 ml EDV(sp4-el): 124.1 ml LVAs ap4: 19.5 cm2 LVLs ap4: 7.7 cm ESV(MOD-sp4): 42.7 ml ESV(sp4-el): 42.1 ml EF(MOD-sp4): 64.6 % EF(sp4-el): 66.1 % LVAd ap2: 35.5 cm2 SV(MOD-sp4): 78.1 ml SV(MOD-sp2): 77.9 ml LVLd ap2: 8.8 cm SI(MOD-sp4): 37.4 ml/m2 SI(MOD-sp2): 37.3 ml/m2 EDV(MOD-sp2): 116.4 ml EDV(sp2-el): 121.0 ml LVAs ap2: 18.9 cm2 LVLs ap2: 7.5 cm ESV(MOD-sp2): 38.5 ml ESV(sp2-el): 40.6 ml EF(MOD-sp2): 66.9 % SV(sp4-el): 82.1 ml LA dimension(2D): 4.0 cm LA A4 area: 16.2 cm2 RA A4 area: 10.2 cm2 Time Measurements MV dec time: 0.22 sec Doppler Measurements & Calculations MV E max say: 79.3 cm/sec Lat Peak E' Say: 10.1 cm/sec Med Peak E' Say: 6.6 cm/sec MV A max say: 90.6 cm/sec E/E' lat: 7.8 E/E' med: 12.1 MV E/A: 0.88 MV V2 max: 103.0 cm/sec Ao V2 max: 235.1 cm/sec MV max P.2 mmHg MV dec slope: 363.3 cm/sec2 Ao max P.1 mmHg MV V2 mean: 48.7 cm/sec Ao V2 mean: 163.1 cm/sec MV mean P.2 mmHg Ao mean P.3 mmHg MV V2 VTI: 44.4 cm Ao V2 VTI: 56.6 cm AV (velocity ratio): 0.56 MVA(VTI): 2.4 cm2 ANNA(I,D): 1.9 cm2 ANNA(V,D): 1.9 cm2 LV V1 max: 129.2 cm/sec SV(LVOT): 107.0 ml PA V2 max: 84.0 cm/sec LV V1 max P.8 mmHg PA V2 mean: 61.9 cm/sec LV V1 mean P.7 mmHg LV V1 mean: 88.3 cm/sec LV V1 VTI: 31.8 cm TR max say: 276.0 cm/sec TR max P.5 mmHg ECHO/Echo Complete Interpretation Summary Normal LV size. Left ventricular systolic function is normal. The estimated ejection fraction is 65 %. Mean aortic valve gradient 12 mmHg. Mild (1+) aortic valve insufficiency. Mild aortic stenosis. Ordering Physician: Sd Colvin Referring Physician: Sd Colvin Performed By: Clarice Pandey RCS
== END | disposition home or self-care (01) ==
PROVIDERS: PCP Physician Assistant; Referring Provider Internal Medicine Cardiovascular Disease; Visit Provider Internal Medicine Cardiovascular Disease
DX: R06.02 Shortness of breath (principal); I10 Essential (primary) hypertension
CPT/HCPCS: 93306